=== PATIENT | female | born 1990 | race Caucasian/White ===

== ENCOUNTER 2018-03-07 02:03 | Inpatient (IN) | payer OTHER ==
[~2018-03-07] VITALS: Ht 160 cm; Wt 69.9 kg
[2018-03-07] VITALS (7 sets, daily range): BP systolic 119–154; BP diastolic 60–80; Ht 160 cm; Wt 69.9 kg
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
[2018-03-07 02:29] LABS: APPEARANCE CLEAR (CLEAR); BILIRUBIN NEGATIVE (NEGATIVE); COLOR YELLOW (YELLOW); GLUCOSE NEGATIVE (NEGATIVE); KETONE NEGATIVE (NEGATIVE); NITRITE NEGATIVE (NEGATIVE); PROTEIN NEGATIVE (NEGATIVE); UROBILINOGEN NORMAL (NORMAL)
[2018-03-07 02:32] LABS: BASOPHILS 0.1 % (0-2); EOSINOPHILS 0.3 % (0-7); HEMOGLOBIN 13.2 g/dL (12-16); IMMATURE GRANULOCYTES 0.2 % (0-5); LYMPHOCYTES 15.8 % (15-50); MCH 32.4 pg (26.0-34.0); MCHC 34.7 g/dL (31.0-37.0); MCV 93.4 fL (80.0-100.0); MEAN PLATELET VOLUME 11.5 fL (7.4-10.4); MONOCYTES 3.4 % (2-11); NEUTROPHILS 80.2 % (40-80); PLATELET COUNT 234 10x3/uL (130-400); RBC 4.07 10x6/uL (4.00-5.40); RDW 12.5 % (11.5-14.5); WBC 10.1 10x3/uL (4.8-10.8)
[2018-03-07 02:40] LABS: ALBUMIN 3.7 g/dL (3.4-5.0); ALKALINE PHOSPHATASE 38 U/L (46-116); ALT (SGPT) 27 U/L (10-68); BILIRUBIN - TOTAL 0.28 mg/dL (0.2-1.3); CALC OSMOLALITY 268 mosm/kg (275-300); CALCIUM 8.8 mg/dL (8.5-10.1); CARBON DIOXIDE 26.4 mmol/L (21.0-32.0); CHLORIDE - SERUM 101 mmol/L (98-107); CREATININE - SERUM 0.5 mg/dL (0.6-1.3); GLUCOSE 133 mg/dL (74-106); POTASSIUM - SERUM 4.1 mmol/L (3.5-5.1); PROTEIN - SERUM 7.2 g/dL (6.4-8.2); SODIUM 134 mmol/L (136-145); UREA NITROGEN 10 mg/dL (7-18); eGFR NON AFRICAN AMERICAN > 90 mL/min (90-120)
[2018-03-07 03:00] LABS: AMYLASE - SERUM 66 U/L (25-115); HCG - QUANTITATIVE (MATERNAL) 93313 mIU/mL; LIPASE 173 U/L (73-393)
[2018-03-07 03:10] LABS: TROPONIN-I < 0.017 ng/mL (0.000-0.060)
[2018-03-07] MEDS ORDERED: HYDROCODON-ACE1 EAC7 PO (06:44)
[2018-03-07] MEDS ORDERED: PRENAVITE1 TAB PO (08:51)
[2018-03-07] MEDS ORDERED: UNISOM SLEEP AI25 MG PO (08:52)
[2018-03-08 00:03] VITALS: BP 110/55
[2018-03-08 03:40] VITALS: BP 140/84
[2018-03-08] MEDS ORDERED: NORCO 10-325 TA1 TAB PO (07:30)
== END 2018-03-08 07:59 | disposition home or self-care (01) | DRG 833 ==
LOC: D.LDO 02:03 → D.ER 02:03 → D.LD 08:14 → EDSTATUS 08:16 → D.LD 09:10 → D.LDO 09:10 → D.LD 03-08 07:59
PROVIDERS: Emergency Medicine
DX: O34.81 Maternal care for other abnormalities of pelvic organs, first trimester (principal); O26.891 Other specified pregnancy related conditions, first trimester; Z3A.01 Less than 8 weeks gestation of pregnancy; J45.990 Exercise induced bronchospasm